=== PATIENT | female | born 1980 | race Two or more races ===

== ENCOUNTER 2019-11-23 09:36 | Outpatient (CLI) | payer OTHER ==
[~2019-11-23 09:36] MED LIST: PREVACID15 MG PO
== END 2019-11-23 09:49 | disposition home or self-care (01) ==
LOC: NUCLEAR 09:36
PROVIDERS: ATTEND Internal Medicine Infectious Disease
DX: M27.2 Inflammatory conditions of jaws (principal)
CPT/HCPCS: 78315; A9503